=== PATIENT | female | born 1970 | race American Indian/Alaskan Native ===

== ENCOUNTER 2021-01-15 08:44 | Outpatient (CLI) | payer BC ==
--- NOTE | 2021-01-15 10:46 | Fluoroscopy Report ---
UPPER GI HISTORY: GASTRO-ESOPHAGEAL REFLUX DISEASE WITHOUT ESOPHAGITIS/K21.9. TECHNIQUE: Single and double contrast barium technique utilized to evaluate the esophagus, stomach, and duodenal C-loop. FINDINGS: To begin the exam, swallowing was evaluated in the lateral position under direct fluorosco py. Swallowing was normal. The esophagus is normal caliber and mucosal pattern throughout. Occasional tertiary contractions in t he esophagus were witnessed. There was delayed emptying of the esophagus throughout this exam. Occasi onal episodes of gastroesophageal reflux were witnessed. There is no evidence for hiatal hernia. Omar sean sleeve surgical changes are identified which appear intact. No evidence for mucosal defect, obstr uction, extravasation or critical stenosis. Visualized small bowel loops are within normal limits. IMPRESSION: Delayed emptying of the esophagus was witnessed throughout this exam. There is evidence for mild esophageal dysmotility and occasional gastroesophageal reflux. Gastric sleeve surgical turpin es are noted unremarkable. No obstruction or mucosal defect. Fluoroscopic time: 4.5 minutes Number of fluoroscopic images: 38 Signer Name: Nitin Davis Jr, MD Signed: 01/15/2021 10:41 AM Workstation Name: [id number]
== END 2021-01-15 08:45 | disposition home or self-care (01) ==
LOC: FLUORO 08:44
PROVIDERS: ATTEND Surgery
DX: K21.9 Gastro-esophageal reflux disease without esophagitis (principal)
CPT/HCPCS: 74246